=== PATIENT | male | born 2000 | race Caucasian/White ===

== ENCOUNTER 2018-12-10 17:47 | Emergency (ER) | payer OTHER ==
[2018-12-10 17:51] VITALS: BP 136/74
[2018-12-10] MEDS ORDERED: fentaNYL 100 MCG/2 ML INJ IVP ONE (17:57)
[2018-12-10] MEDS ORDERED: KETOROLAC 15 MG/1 ML SDV IVP ONE (18:49)
--- NOTE | 2018-12-10 18:49 | EDPHY ---
H & P Stated Complaint: left leg injury/pain - Medical/Surgical History Hx Asthma: No Hx Chronic Respiratory Disease: No Hx Diabetes: No Hx Cardiac Disease: No Hx Renal Disease: No Hx Cirrhosis: No Hx Alcoholism: No Hx HIV/AIDS: No Hx Splenectomy or Spleen Trauma: No Other PMH: denies - Social History Smoking Status: Never smoked Time Seen by Provider: 12/10/18 17:53 HPI/ROS: Chief complaint: Left leg injury History of present illness: This is a 18-year-old male presenting to the emergency department for a left leg injury. Patient was running while playing baseball when he felt a pop in his left mid thigh. He fell to the ground. He has had severe pain. He is having difficulty moving the hip and knee. No report of direct trauma. No abnormal coolness or paresthesias in the leg. No other injury reported (Glenn Thompson) - Physical Exam Exam: General: Alert and oriented. Skin: No open wounds to the left leg. Musculoskeletal: Tenderness to the lateral and anterior aspect of the left mid thigh. The hip and knee are nontender. Vascular: DP and PT pulses 2+. Neurologic: Sensation intact in the left leg. (Glenn Thompson) Constitutional: Initial Vital Signs Temperature (C) 36.9 C 12/10/18 17:49 Heart Rate 126 H 12/10/18 17:49 Respiratory Rate 18 12/10/18 17:49 Blood Pressure 136/74 H 12/10/18 17:49 O2 Sat (%) 99 12/10/18 17:49 O2 Delivery Mode Room Air Allergies/Adverse Reactions: No Known Allergies Allergy (Unverified 12/10/18 17:51) Home Medications: Medication Instructions Recorded Hydrocodone/APAP 5/325 [[place] 1 tab PO Q6H #10 tab 12/10/18 5/325 (*)] Medical Decision Making - Diagnostics Imaging: I viewed and interpreted images myself ED Course/Re-evaluation: Patient is seen in conjunction with my primary supervising physician Dr. Apodaca. Patient presents for left leg injury. The leg is neurovascularly intact. X- ray is negative. I have consulted with Dr. Saenz. We believe this is likely a rupture of part of the quadriceps or IT band or similar. Patient will be discharged home on crutches. Home care is discussed including pain management. He is referred to Orthopedics for recheck. Return precautions are given. ( Glenn Thompson) This pt was seen and examined by me d/t severity of pain. PE: tender over the anterior and medial aspect of the mid-thigh, passive hip/knee ROM with minimal pain. I agree with the assessment and plan. Pt much more comfortable on discharge, able to ambulate well using crutches. (Anuradha Apodaca) Differential Diagnosis: Included but not limited to sprain, strain, rupture, fracture (Glenn Thompson) - Data Points Medications Given: Discontinued Medications Fentanyl (Sublimaze) 75 mcg IVP EDNOW ONE Stop: 12/10/18 17:58 Last Admin: 12/10/18 17:59 Dose: 75 mcg Ketorolac Tromethamine (Toradol) 15 mg IVP EDNOW ONE Stop: 12/10/18 18:50 Last Admin: 12/10/18 18:54 Dose: 15 mg Departure - Departure Disposition: Home, Routine, Self-Care Clinical Impression: Left leg injury Qualifiers: Encounter type: initial encounter Qualified Code(s): S89.92XA - Unspecified injury of left lower leg, initial encounter Condition: Good Instructions: Muscle Strain (ED) Additional Instructions: Please call and arrange a follow-up appointment with orthopedics for further evaluation and care In regards to pain control see the following: Use ibuprofen [600] mg [3] times a day for the next 2-3 days for pain In addition You have been prescribed [[place]] for pain. [[place]] contains Tylenol, do not take extra Tylenol/acetaminophen/Apap with it. It is sedating. If symptoms worsen or new symptoms develop return to the emergency room for recheck Referrals: Familia Saenz MD [Medical Doctor] - As per Instructions Prescriptions: Hydrocodone/APAP 5/325 [[place] 5/325 (*)] 1 tab PO Q6H #10 tab
== END 2018-12-10 19:26 | disposition home or self-care (01) ==
DX: S89.92XA Unspecified injury of left lower leg, initial encounter (principal); Y93.67 Activity, basketball
CPT/HCPCS: 96374; J1885; J3010